=== PATIENT | male | born 1995 | race Two or more races ===

== ENCOUNTER 2016-08-11 04:27 | Emergency (ER) | payer SELFPAY ==
[~2016-08-11] VITALS: Ht 185.4 cm; Wt 108.9 kg
[2016-08-11 04:31] VITALS: BP 129/73
[2016-08-11] MEDS ORDERED: HYDROCODONE/APAP 5/325MG 1 EACH TABLET ONE (06:06)
[2016-08-11] MEDS ORDERED: HYDROCODONE/APAP 5/325MG 1 EACH TABLET PO ONE (06:30)
== END 2016-08-11 06:12 | disposition home or self-care (01) ==
LOC: ER 04:29
DX: S01.511A Laceration without foreign body of lip, initial encounter (principal); S00.83XA Contusion of other part of head, initial encounter; S09.90XA Unspecified injury of head, initial encounter; Y04.8XXA Assault by other bodily force, initial encounter; Y93.89 Activity, other specified; Y92.89 Other specified places as the place of occurrence of the external cause; Y99.8 Other external cause status
CPT/HCPCS: 12011; 70450; 70486; 99284; A4606; Z7610

== ENCOUNTER 2017-04-21 05:26 | Emergency (ER) | payer OTHER ==
[~2017-04-21] VITALS: Ht 188 cm; Wt 99.8 kg
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
[2017-04-21] MEDS ORDERED: FLUORESCEIN SODIUM OPHTH 1 EA STRIP ONE (05:45)
[2017-04-21] MEDS ORDERED: FLUORESCEIN SODIUM OPHTH 1 EA STRIP OP ONE (06:00)
[2017-04-21] MEDS ORDERED: TETRACAINE HCL/PF 0.5% UD 2 ML BOTTLE OP ONE (06:00)
--- NOTE | 2017-04-21 06:00 | NUR ---
DR. NORRIS AT BEDSIDE FOR EVAL.
--- NOTE | 2017-04-21 06:49 | NUR ---
Patient discharged to [facility] in stable condition. Written and verbal after care instructions given. Patient verbalizes understanding of instruction. ambulatory with a steady gait
[2017-04-21 06:50] VITALS: BP 144/88
== END 2017-04-21 06:50 ==
LOC: ER 05:29
DX: F10.129 Alcohol abuse with intoxication, unspecified (principal); T65.891A Toxic effect of other specified substances, accidental (unintentional), initial encounter; X58.XXXA Exposure to other specified factors, initial encounter; Y93.89 Activity, other specified; Y92.89 Other specified places as the place of occurrence of the external cause; Y99.8 Other external cause status
CPT/HCPCS: 82962-TC; A4606; Z7610

== ENCOUNTER 2018-12-28 00:12 | Emergency (ER) | payer SELFPAY ==
[~2018-12-28] VITALS: Ht 185.4 cm; Wt 113.4 kg
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
[2018-12-28] MEDS ORDERED: IBUPROFEN 600 MG TABLET PO ONE (00:59)
[2018-12-28] MEDS: IBUPROFEN 600 MG TABLET PO ONE (00:59)
[2018-12-28] MEDS: HYDROCODONE/APAP 10/325MG 1 EA TABLET PO ONE (02:58)
[2018-12-28] MEDS ORDERED: HYDROCODONE/APAP 10/325MG 1 EA TABLET ONE (02:58)
--- NOTE | 2018-12-28 03:05 | NUR ---
PT WAS PROVIDED W/ POSTERIOR SHORT LEG SPLINT AND CRUTCHES AND A CD OF THE IMAGING. GAIT TRAINING WAS PROVIDED W/ GOOD DEMONSTRATION. PT WAS ALSO MEDCIATED ORDERED.
--- NOTE | 2018-12-28 03:08 | NUR ---
Patient discharged to home in stable condition. Rx and Written and verbal after care instructions given. Patient verbalizes understanding of instruction.
[2018-12-28 03:10] VITALS: BP 144/78
== END 2018-12-28 03:13 | disposition home or self-care (01) ==
LOC: ER 00:17
DX: S92.355A Nondisplaced fracture of fifth metatarsal bone, left foot, initial encounter for closed fracture (principal); Z90.89 Acquired absence of other organs; X50.1XXA Overexertion from prolonged static or awkward postures, initial encounter; Y93.89 Activity, other specified; Y92.89 Other specified places as the place of occurrence of the external cause; Y99.8 Other external cause status
CPT/HCPCS: 73630-TC

== ENCOUNTER 2021-04-16 22:32 | Emergency (ER) | payer SELFPAY ==
[~2021-04-16] VITALS: Ht 182.9 cm; Wt 127.0 kg
[2021-04-17] MEDS ORDERED: IBUPROFEN 400 MG TABLET PO ONE
[2021-04-17] MEDS ORDERED: IBUPROFEN 400 MG TABLET ONE (00:04)
--- NOTE | 2021-04-17 00:13 | NUR ---
BROUGHT FOR XRAY
[2021-04-17 00:22] LABS: BILIRUBIN,URINE Negative (NEGATIVE); COLOR,URINE YELLOW (YELLOW); LEUKOCYTE ESTERASE ,URINE Negative (NEGATIVE); NITRITE, URINE Negative (NEGATIVE); PROTEIN,URINE Negative (NEGATIVE); UGLUCOSE Negative (NEGATIVE); UROBILINOGEN,URINE 0.2 EU/dL (0.2)
[2021-04-17 00:25] LABS: BACTERIA,URINE Rare /HPF (None Seen); RBC,URINE NONE SEEN /HPF (0-2); SQUAMOUS EPITHELIAL CELL,UR Few /HPF (None Seen); WBC,URINE NONE SEEN /HPF (0-3)
[2021-04-17] MEDS ORDERED: IBUP-1957 PO (02:02)
--- NOTE | 2021-04-17 03:13 | NUR ---
Patient discharged to home in stable condition. Written and verbal after care instructions given. Patient verbalizes understanding of instruction.
[2021-04-17 03:14] VITALS: BP 138/70
== END 2021-04-17 03:17 | disposition home or self-care (01) ==
LOC: ER 22:34
DX: R10.9 Unspecified abdominal pain (principal); R05.9 Cough, unspecified; F17.210 Nicotine dependence, cigarettes, uncomplicated; Z79.1 Long term (current) use of non-steroidal anti-inflammatories (NSAID)
CPT/HCPCS: 71100-TC; 81001